=== PATIENT | female | born 1945 | race Caucasian/White ===

== ENCOUNTER 2017-09-03 11:55 | Emergency (ER) | payer MEDICARE ==
[~2017-09-03] VITALS: Ht 157.5 cm; Wt 68.0 kg
[2017-09-03 12:02] VITALS: BP 150/90; PULSE 79; RESP 18; TEMP 98.5; O2SAT 97
[2017-09-03] MEDS ORDERED: ROSU10 PO (12:12)
[2017-09-03] MEDS ORDERED: SYNT112T PO (12:12)
[2017-09-03] MEDS ORDERED: OMEP20TA93 PO (12:12)
--- NOTE | 2017-09-03 12:30 | PD ---
HPI Chief Complaint: Cold / Flu Symptoms Time Seen by Provider: 12:23 Travel History International Travel<30 days: No Contact w/Intl Traveler<30days: No Traveled to known affect area: No History of Present Illness HPI 71-year-old female presents for evaluation. For 2 days she has had cough, congestion. The cough is occasionally productive with clear sputum production. She reports low-grade fever with a maximum temperature at home of 100. Denies any sick contacts, recent travel. Denies ear pain, sore throat, rash, abdominal pain, nausea or vomiting. She has no other complaints at this time. PFSH Past Medical History High Cholesterol: Yes Chemotherapy: Yes (LAST TREATMENT 2003) Diminished Hearing: No Implanted Vascular Access Dvce: Yes (rt chest) Immunizations Current: Yes Tetanus Vaccination: Unknown Influenza Vaccination: Yes ?: Not Menopausal: Yes Past Surgical History Eye Surgery: Yes Other Surgery: Yes (mastecomy) Social History Alcohol Use: Yes (2xs week) Tobacco Use: No Substance Use: No Allergies-Medications (Allergen,Severity, Reaction): Coded Allergies: latex (Verified Allergy, Intermediate, HIVES, 09/03/17) Reported Meds & Prescriptions Reported Meds & Active Scripts Active Proair Hfa 8.5 GM Inh (Albuterol Sulfate) 90 Mcg/Act Aer 2 Puff INH Q4-6H PRN 108 mcg/actuation Prednisone 20 Mg Tab 20 Mg PO BID 5 Days Tamiflu (Oseltamivir Phosphate) 75 Mg Cap 75 Mg PO BID 5 Days Reported Synthroid (Levothyroxine Sodium) 112 Mcg Tab 112 Mcg PO DAILY Crestor (Rosuvastatin Calcium) 10 Mg Tab 10 Mg PO DAILY Omeprazole 20 Mg Tab 20 Mg PO DAILY Review of Systems Except as stated in HPI: all other systems reviewed are Neg Physical Exam Narrative GENERAL: Well-developed well-nourished female in no acute distress SKIN: Warm and dry. HEAD: Atraumatic. Normocephalic. EYES: Pupils equal and round. No scleral icterus. No injection or drainage. ENT: No nasal bleeding or discharge. Mucous membranes pink and moist. NECK: Trachea midline. No JVD. CARDIOVASCULAR: Regular rate and rhythm. No murmur appreciated. RESPIRATORY: No accessory muscle use. Scattered wheezing bilaterally. GASTROINTESTINAL: Abdomen soft, non-tender, nondistended. Hepatic and splenic margins not palpable. MUSCULOSKELETAL: No obvious deformities. No clubbing. No cyanosis. No edema. NEUROLOGICAL: Awake and alert. No obvious cranial nerve deficits. Motor grossly within normal limits. Normal speech. PSYCHIATRIC: Appropriate mood and affect; insight and judgment normal. Data Data Last Documented VS Vital Signs Date Time Temp Pulse Resp B/P (MAP) Pulse Ox O2 Delivery O2 Flow Rate FiO2 09/03/17 12:02 98.5 79 18 150/90 (110) 97 Orders Orders Influenzae A/B Antigen (09/03/17 12:28) Chest, Single Ap (09/03/17 12:28) Albuterol-Ipratropium Neb (Duoneb Neb) (09/03/17 12:30) Ed Discharge Order (09/03/17 13:50) [facility] Medical Decision Making Medical Screen Exam Complete: Yes Emergency Medical Condition: Yes Medical Record Reviewed: Yes Differential Diagnosis Influenza, pneumonia, reactive airway disease, bronchitis Narrative Course 71-year-old female with 2 days of cough, congestion, low-grade fever. On examination she has scattered wheezing. DuoNeb treatment has been ordered. Chest x-ray, influenza antigen has been ordered. Chest x-ray is normal. She has positive for influenza B. She reports significant improvement in breathing with DuoNeb treatment. Patient is being discharged with Tamiflu, albuterol, prednisone. Diagnosis Primary Impression: Influenza B Additional Instructions: Medication as prescribed. Tylenol and Motrin for fever. Stay well-hydrated and well-nourished. Follow-up with primary care physician as needed and return for any emergent medical conditions. Med/Other Pt SpecificInfo: Prescription(s) given Scripts Albuterol 8.5 GM Inh (Proair Hfa 8.5 GM Inh) 90 Mcg/Act Aer 2 PUFF INH Q4-6H Y for SHORTNESS OF BREATH, #1 INHALER 0 Refills 108 mcg/actuation Prov: Mustapha Doss MD 09/03/17 Prednisone (Prednisone) 20 Mg Tab 20 MG PO BID for 5 Days, #10 TAB 0 Refills Prov: Mustapha Doss MD 09/03/17 Oseltamivir (Tamiflu) 75 Mg Cap 75 MG PO BID for Mgmt Viral Infection for 5 Days, #10 CAP 0 Refills Prov: Mustapha Doss MD 09/03/17 Disposition: 01 DISCHARGE HOME Condition: Stable Nima,Fady P. PA Sep 03, 2017 12:30
[2017-09-03] MEDS: RESP: ALBUTEROL 2.5 MG/IPRATROPIUM 0.5 MG NEB (SCH) INH (12:49)
--- NOTE | 2017-09-03 13:40 | RADRPT ---
EXAM DATE/TIME: 09/03/2017 13:22 [place] COMPARISON: No previous studies available for comparison. INDICATIONS : Cough and congestion for 2 days. MEDICAL HISTORY : Carcinoma, breast. SURGICAL HISTORY : Mastectomy, bilateral. ENCOUNTER: Initial ACUITY: 2 days PAIN SCORE: 2/10 LOCATION: Bilateral chest FINDINGS: There is an indwelling right subclavian venous catheter [id number]. Spurring is noted of the mid l ower thoracic spine with intact bony structures. Surgical clips are noted in the bilateral axilla wit h some indistinctness of the right breast tissue. This may represent reconstruction. The heart, aorta , and vascularity are normal with clear lung campuzano. CONCLUSION: No acute disease. Harman Pretty MD on September 03, 2017 at 13:36 Board Certified Radiologist. This report was verified electronically.
[2017-09-03] MEDS ORDERED: ALBUAER3 INH (13:51)
[2017-09-03] MEDS ORDERED: OSEL75 PO (13:51)
[2017-09-03] MEDS ORDERED: PRED20 PO (13:51)
[2017-09-03 14:08] VITALS: BP 148/86
== END 2017-09-03 14:09 | disposition home or self-care (01) ==
LOC: PHEFT 11:55
DX: J10.1 Influenza due to other identified influenza virus with other respiratory manifestations (principal); E78.00 Pure hypercholesterolemia, unspecified; Z85.3 Personal history of malignant neoplasm of breast; Z79.899 Other long term (current) drug therapy; Z90.13 Acquired absence of bilateral breasts and nipples
CPT/HCPCS: 71045; 87804; 94640; 94664; 99284